=== PATIENT | female | born 1950 | race Caucasian/White ===

== ENCOUNTER 2016-11-30 08:49 | Emergency (ER) | payer OTHER ==
[~2016-11-30] VITALS: Ht 175.3 cm; Wt 61.2 kg
[~2016-11-30 08:49] MED LIST: CELE200C PO; GABA-586 PO; GABAPENTIN PO; LISI-338 PO; MORP15TA PO; MULT1TAB52 PO; OXYC-328 PO; OXYC10TA PO; OXYC30TA PO; PREG75CA PO; TRAM50TA PO
[2016-11-30 09:32] LABS: BASO % 1 % (0-3); EOS # 0.1 x10^3/uL (0.0-0.7); EOS % 1 % (0-3); HEMATOCRIT 44.6 % (36.0-47.0); HEMOGLOBIN 15.3 g/dL (12.0-15.5); LYMPH # 0.9 x10^3/uL (1.0-4.8); LYMPH % 14 % (24-48); MEAN CORPUSCULAR HEMOGLOBIN 31 pg (25-35); MEAN CORPUSCULAR HGB CONC 34 g/dL (31-37); MEAN CORPUSCULAR VOLUME 90 fL (79-100); MONO # 0.7 x10^3/uL (0.0-1.1); MONO % 11 % (0-9); NEUT # 4.9 x10^3uL (1.8-7.7); NEUT % 74 % (31-73); PLATELET COUNT 350 x10^3/uL (140-400); RED BLOOD COUNT 4.95 x10^6/uL (3.50-5.40); RED CELL DISTRIBUTION WIDTH 12.9 % (11.5-14.5); WHITE BLOOD COUNT 6.7 x10^3/uL (4.0-11.0)
[2016-11-30 09:41] LABS: ALBUMIN 3.2 g/dL (3.4-5.0); ALBUMIN/GLOBULIN RATIO 0.7 (1.0-1.7); CALCIUM 9.4 mg/dL (8.5-10.1); CREATININE 0.8 mg/dL (0.6-1.0); GFR 71.3; POTASSIUM 3.6 mmol/L (3.5-5.1); TOTAL BILIRUBIN 0.3 mg/dL (0.2-1.0); TOTAL PROTEIN 7.6 g/dL (6.4-8.2)
[2016-11-30] MEDS ORDERED: IOHEXOL 300 MG/ML 75 ML VIAL. IV ONE (09:45)
--- NOTE | 2016-11-30 10:22 | RAD ---
CT of the abdomen and pelvis with contrast, 11/30/2016: History: Nodule, vomiting, bowel obstruction Multidetector CT imaging was performed following oral and IV administration of contrast. Comparison is made to a study from 12/10/2015. There is mild linear scarring in the lung bases. Extensive capsular calcifications related to bilateral breast implants are noted. There is a small unchanged cyst in the upper portion of the liver. No bile duct dilatation is evident. No dense gallstones are seen. There is no evidence of a pancreatic mass. The spleen is of normal size. There is mild renal cortical scarring. Tiny nonobstructing intrarenal calculi seen on the previous study are obscured on today's exam due to contrast in the collecting system. There is no evidence of renal obstruction. A probable small 9 mm left renal artery aneurysm is again noted, unchanged since 12/10/2015. The adrenal glands are unremarkable. Mild aortoiliac calcific plaquing is present without evidence of aneurysm. No abdominal or pelvic adenopathy is seen. The uterus is surgically absent. There has been previous surgical resection of the colon with an ileostomy in the right lower quadrant. The distal small bowel loops near the ileostomy site are mildly distended measuring approximately 4 cm in width. The right containing a small amount of fecal type debris. There is mild mural thickening involving several small bowel loops in the lower pelvis. Lack of distention of those bowel loops may be contributing to this appearance. The stomach and proximal small bowel loops are not dilated. No high-grade obstruction is evident. There is unchanged mild presacral soft tissue thickening compatible with scarring. No free fluid or free air is evident in the abdomen or pelvis. There is a moderate lumbar scoliosis with moderate associated multilevel degenerative changes. An internal fixation device is present at the left hip. IMPRESSION: 1. Status post colectomy with a right lower quadrant ileostomy in place.. 2. There is mild prominence of distal small bowel loops at the ileostomy site without evidence of high-grade obstruction. 3. Mild mural thickening involving several small bowel loops in the lower pelvis raising the possibility of nonspecific enteritis. 4. Stable small left renal artery aneurysm. PQRS Compliance Statement: One or more of the following individualized dose reduction techniques were utilized for this examination: 1. Automated exposure control 2. Adjustment of the mA and/or kV according to patient size 3. Use of iterative reconstruction technique
[2016-11-30] MEDS ORDERED: ONDANSETRON PF 4 MG/2 ML VIAL. IV ONE (10:45)
[2016-11-30] MEDS ORDERED: MORPHINE SULFATE 4 MG/ML DISP.SYRIN. IM ONE (10:45)
[2016-11-30] MEDS ORDERED: IV NORMAL SALINE 1,000ML 1,000 ML IV ONE (10:45)
--- NOTE | 2016-11-30 11:04 | PHYS DOC ---
Past History Past Medical History: Other Past Surgical History: Hysterectomy, Other Alcohol Use: None Drug Use: None Adult General Chief Complaint Chief Complaint: ABDOMINAL PAIN HPI HPI This 66-year-old lady presents with abdominal pain. She has an ileostomy which has been in place for 35 years after having a colectomy for ulcerative colitis. She states that over the weekend she thinks she may have developed a partial blockage as she had vomiting. She continues to have a little bit of nausea and that she is passing feces through her stoma yesterday and today. She has had abdominal pain and she states that she has been taking food but she has been drinking she isn't keeping water down as well as chocolate milk and she states things just haven't tasted good. She ate a bite of eggs just today and a little watermelon but hasn't been eating much. She has been nauseated but has not been vomiting today. She denies dysuria or fevers. He states he has little bit of pain around her stoma and just inferior to her stoma. Review of Systems Review of Systems Constitutional: Denies fever or chills [] Eyes: Denies change in visual acuity, redness, or eye pain [] HENT: Denies nasal congestion or sore throat [] Respiratory: Denies cough or shortness of breath [] Cardiovascular: No additional information not addressed in HPI [] GI: See history of present illness : Denies dysuria or hematuria [] Musculoskeletal: Denies back pain or joint pain [] Integument: Denies rash or skin lesions [] Neurologic: Denies headache, focal weakness or sensory changes [] Endocrine: Denies polyuria or polydipsia [] Current Medications Current Medications Current Medications Medications (Trade) Dose Ordered Sig/Molly Start Time Stop Time Status Last Admin Dose Admin Iohexol (Omnipaque 300 Mg/ml) 75 ml 1X ONCE 11/30/16 09:45 11/30/16 09:47 DC 11/30/16 10:02 75 ML Morphine Sulfate (Morphine 4mg Syringe) 4 mg 1X ONCE 11/30/16 10:45 11/30/16 10:46 DC Ondansetron HCl (Zofran) 4 mg 1X ONCE 11/30/16 10:45 11/30/16 10:46 DC 11/30/16 10:43 4 MG Sodium Chloride 1,000 ml @ 1,000 mls/hr 1X ONCE 11/30/16 10:45 11/30/16 11:44 11/30/16 10:43 1,000 MLS/HR Allergies Allergies Allergies Coded Allergies Type Severity Reaction Last Updated Verified No Known Drug Allergies 01/27/15 No Physical Exam Physical Exam Constitutional: Well developed, well nourished, no acute distress, non-toxic appearance. [] HENT: Normocephalic, atraumatic, bilateral external ears normal, oropharynx moist, no oral exudates, nose normal. [] Eyes: PERRLA, EOMI, conjunctiva normal, no discharge. [] Neck: Normal range of motion, no tenderness, supple, no stridor. [] Cardiovascular:Heart rate regular rhythm, no murmur [] Lungs & Thorax: Bilateral breath sounds clear to auscultation [] Abdomen: Bowel sounds normal, soft, no tenderness, no masses, no pulsatile masses. [] Skin: Warm, dry, no erythema, no rash. [] Back: No tenderness, no CVA tenderness. [] Extremities: No tenderness, no cyanosis, no clubbing, ROM intact, no edema. [] Neurologic: Alert and oriented X 3, normal motor function, normal sensory function, no focal deficits noted. [] Psychologic: Affect normal, judgement normal, mood normal. [] Current Patient Data Vital Signs Vital Signs Date Time Temp Pulse Resp B/P (MAP) Pulse Ox O2 Delivery O2 Flow Rate FiO2 11/30/16 10:31 98 20 123/75 (91) 98 Room Air 11/30/16 09:07 97.2 Lab Results Laboratory Tests Test 11/30/16 08:15 White Blood Count 6.7 x10^3/uL (4.0-11.0) Red Blood Count 4.95 x10^6/uL (3.50-5.40) Hemoglobin 15.3 g/dL (12.0-15.5) Hematocrit 44.6 % (36.0-47.0) Mean Corpuscular Volume 90 fL (79-100) Mean Corpuscular Hemoglobin 31 pg (25-35) Mean Corpuscular Hemoglobin Concent 34 g/dL (31-37) Red Cell Distribution Width 12.9 % (11.5-14.5) Platelet Count 350 x10^3/uL (140-400) Neutrophils (%) (Auto) 74 % (31-73) H Lymphocytes (%) (Auto) 14 % (24-48) L Monocytes (%) (Auto) 11 % (0-9) H Eosinophils (%) (Auto) 1 % (0-3) Basophils (%) (Auto) 1 % (0-3) Neutrophils # (Auto) 4.9 x10^3uL (1.8-7.7) Lymphocytes # (Auto) 0.9 x10^3/uL (1.0-4.8) L Monocytes # (Auto) 0.7 x10^3/uL (0.0-1.1) Eosinophils # (Auto) 0.1 x10^3/uL (0.0-0.7) Basophils # (Auto) 0.0 x10^3/uL (0.0-0.2) Sodium Level 134 mmol/L (136-145) L Potassium Level 3.6 mmol/L (3.5-5.1) Chloride Level 96 mmol/L (98-107) L Carbon Dioxide Level 25 mmol/L (21-32) Anion Gap 13 (6-14) Blood Urea Nitrogen 13 mg/dL (7-20) Creatinine 0.8 mg/dL (0.6-1.0) Estimated GFR (Cockcroft-Gault) 71.3 BUN/Creatinine Ratio 16 (6-20) Glucose Level 130 mg/dL (70-99) H Calcium Level 9.4 mg/dL (8.5-10.1) Total Bilirubin 0.3 mg/dL (0.2-1.0) Aspartate Amino Transferase (AST) 16 U/L (15-37) Alanine Aminotransferase (ALT) 18 U/L (14-59) Alkaline Phosphatase 147 U/L (46-116) H Total Protein 7.6 g/dL (6.4-8.2) Albumin 3.2 g/dL (3.4-5.0) L Albumin/Globulin Ratio 0.7 (1.0-1.7) L Lipase 101 U/L (73-393) EKG EKG [] Radiology/Procedures Radiology/Procedures [] Impressions: Abdominal Pain UTI Course & Med Decision Making Course & Med Decision Making Pertinent Labs and Imaging studies reviewed. (See chart for details) This lady presents with abdominal pain some slight nausea vomiting diarrhea has been going on for the past several days. She has a history of a ileostomy for ulcerative colitis She feels it is getting better but she still just doesn't feel like eating and she has had some continued nausea Her examination reveals some very mild abdominal tenderness around the ileostomy CT scan of her abdomen is nonspecific There is no obstruction but there may be some changes of a enteritis Her CBC reveals no elevation of white count A catheterized urine reveals a specific gravity of 1.005 (so it's very dilute) with 1-4 white blood cells which may be significant for a mild UTI She will be treated for a urinary tract infection with Cipro and she'll be given Zofran for nausea and hydrocodone/APAP for pain [] Dragon Disclaimer Dragon Disclaimer This chart was dictated in whole or in part using Voice Recognition software in a busy, high-work load, and often noisy Emergency Department environment. It may contain unintended and wholly unrecognized errors or omissions. Departure Departure: Referrals: GERALD VARGAS (PCP) MAYI BUTCHER MD November 30, 2016 11:04
[2016-11-30 11:43] LABS: BILIRUBIN,URINE SMALL (NEG); CLARITY,URINE CLEAR; COLOR,URINE YELLOW; GLUCOSE,URINE NEG (NEG)
[2016-11-30 11:44] LABS: BACTERIA,URINE FEW /HPF (0-FEW); HYALINE CASTS, URINE FEW /HPF; NITRITE,URINE NEG (NEG); RBC,URINE OCC /HPF (0-2); SQUAMOUS EPITHELIAL CELL,UR FEW /LPF; UROBILINOGEN,URINE 0.2 mg/dL (0.2 mg/dL)
[2016-11-30] MEDS ORDERED: HYDR-2758 PO (12:08)
[2016-11-30] MEDS ORDERED: CIPR500T94 PO (12:08)
[2016-11-30] MEDS ORDERED: ONDA4TAB7 PO (12:08)
[2016-11-30 12:20] VITALS: BP 136/69
== END 2016-11-30 12:12 | disposition home or self-care (01) ==
LOC: ER 08:49
DX: N39.0 Urinary tract infection, site not specified (principal); R19.7 Diarrhea, unspecified; Z90.710 Acquired absence of both cervix and uterus; Z90.49 Acquired absence of other specified parts of digestive tract; Z87.19 Personal history of other diseases of the digestive system
CPT/HCPCS: 36415; 74177; 80053; 81001; 83690; 85027; 96361; 96372; 96374; 99285; J2270; J2405; Q9967; J7030

== ENCOUNTER → 2016-12-14 | Outpatient (CLI) | payer OTHER ==
[2016-11-30 12:20] VITALS: BP 136/69
[~2016-12-14] MED LIST changes: +CIPR500T94 PO; +HYDR-2758 PO; +ONDA4TAB7 PO
--- NOTE | 2016-12-14 11:16 | RAD ---
Indication osteoporosis. History of fracture. The lumbar spine and right hip were evaluated. Note is made of a previous bone density determination of the lumbar spine 06/04/2014 and a previous determination of the right hip 07/01/2015. In the lumbar spine the average bone mineral density is approximately 1.18 g/cc. This value may be slightly artificially elevated secondary to sclerotic changes. The T score of 0 is normal. In the right hip the average bone mineral density is approximately 0.67 g/cc representing slight improvement relative to the previous exam. The T score, however, of -2.8 is indicative of persistent osteoporosis. IMPRESSION: Persistent osteoporosis associated with the right hip. Probable normal bone mineral density associated with the lumbar spine
== END | disposition home or self-care (01) ==
LOC: DXRAD 09:54
PROVIDERS: ATTEND Physician Assistant Medical
DX: M81.0 Age-related osteoporosis without current pathological fracture (principal)
CPT/HCPCS: 77080

== ENCOUNTER 2017-05-15 01:04 | Emergency (ER) | payer OTHER ==
[~2017-05-15] VITALS: Ht 175.3 cm; Wt 63.8 kg
[2017-05-15 02:07] LABS: INFLUENZA A PATIENT NEGATIVE (NEGATIVE); INFLUENZA B PATIENT NEGATIVE (NEGATIVE)
[2017-05-15] MEDS ORDERED: BUDESONIDE 0.5 MG/2 ML NEBU NEB ONE (02:30)
[2017-05-15] MEDS ORDERED: AMOXICILLIN 250 MG CAPSULE PO ONE (02:30)
[2017-05-15] MEDS ORDERED: BUDESONIDE 0.5 MG/2 ML NEBU ONE (02:37)
[2017-05-15] MEDS ORDERED: AMOXICILLIN 250 MG CAPSULE ONE (02:38)
[2017-05-15] MEDS ORDERED: AMOX500T PO (02:42)
[2017-05-15] MEDS ORDERED: FLUT12AE IH (02:42)
[2017-05-15] MEDS ORDERED: FLUT9.9S NS (02:42)
--- NOTE | 2017-05-15 02:46 | PHYS DOC ---
Past History Past Medical History: No Pertinent History Past Surgical History: Hysterectomy, Other Alcohol Use: None Drug Use: None Adult General Chief Complaint Chief Complaint: SORE THROAT HPI HPI Patient is a 66 year old F who presents with sore throat and nasal congestion. Hannah states that she began having symptoms 3-4 days ago. She describes her symptoms as constant and gradually worsening. She denies fever sweats chills. She denies shortness of breath. She denies exacerbating or alleviating factors. Review of Systems Review of Systems Constitutional: Denies fever or chills [] Eyes: Denies change in visual acuity, redness, or eye pain [] HENT: Negative except history of present illness Respiratory: Denies cough or shortness of breath [] Cardiovascular: No additional information not addressed in HPI [] GI: Denies abdominal pain, nausea, vomiting, bloody stools or diarrhea [] : Denies dysuria or hematuria [] Musculoskeletal: Denies back pain or joint pain [] Integument: Denies rash or skin lesions [] Neurologic: Denies headache, focal weakness or sensory changes [] Endocrine: Denies polyuria or polydipsia [] Family History Family History Noncontributory Current Medications Current Medications Medications reviewed Allergies Allergies Allergies Coded Allergies Type Severity Reaction Last Updated Verified No Known Drug Allergies 01/27/15 No Physical Exam Physical Exam Constitutional: Well developed, well nourished, no acute distress, non-toxic appearance. [] HENT: Normocephalic, atraumatic, bilateral nasal erythema and edema, normal TM, moderate oropharyngeal erythema with tonsillar edema and white patches on the soft palate Eyes: PERRLA, EOMI, conjunctiva normal, no discharge. [] Neck: Normal range of motion, no tenderness, supple, no stridor. [] Anterior lymphadenopathy Cardiovascular:Heart rate regular rhythm, no murmur [] Lungs & Thorax: Bilateral breath sounds clear to auscultation [] Abdomen: Bowel sounds normal, soft, no tenderness, no masses, no pulsatile masses. [] Skin: Warm, dry, no erythema, no rash. [] Back: No tenderness, no CVA tenderness. [] Extremities: No tenderness, no cyanosis, no clubbing, ROM intact, no edema. [] Neurologic: Alert and oriented X 3, normal motor function, normal sensory function, no focal deficits noted. [] Psychologic: Affect normal, judgement normal, mood normal. [] Current Patient Data Vital Signs Vital Signs Date Time Temp Pulse Resp B/P (MAP) Pulse Ox O2 Delivery O2 Flow Rate FiO2 05/15/17 01:22 98.1 88 20 98 Lab Results Laboratory Tests Test 05/15/17 01:13 05/15/17 01:33 Group A Streptococcus Rapid Negative (NEGATIVE) Influenza Type A (Rapid) Negative (NEGATIVE) Influenza Type B (Rapid) Negative (NEGATIVE) EKG EKG [] Radiology/Procedures Radiology/Procedures [] Course & Med Decision Making Course & Med Decision Making Pertinent Labs and Imaging studies reviewed. (See chart for details) Despite negative strep screening Hannah had symptoms consistent with strep throat. She was given a dose of amoxicillin in the emergency room Dragon Disclaimer Dragon Disclaimer This chart was dictated in whole or in part using Voice Recognition software in a busy, high-work load, and often noisy Emergency Department environment. It may contain unintended and wholly unrecognized errors or omissions. Departure Departure: Impression: Primary Impression: Upper respiratory infection Additional Impressions: Bronchitis Strep throat Disposition: 01 HOME, SELF-CARE Condition: STABLE Referrals: GERALD VARGAS (PCP) Patient Instructions: Acute Bronchitis, Upper Respiratory Infection, Adult Additional Instructions: Hannah was seen in the emergency department for sore throat and nasal congestion. No emergency medical condition was found on history or physical exam. Her symptoms were concerning for strep throat for which she was started on an antibiotic. She was also found to have signs and symptoms consistent with upper respiratory infection and bronchitis. She was advised to use nasal saline rinses regularly and was given an inhaled and nasal steroid sprays. She is advised follow-up with her primary care doctor in the next 3-5 days for further management. Scripts Amoxicillin (AMOXICILLIN) 500 Mg Tablet 2 TAB PO BID for 7 Days, #28 TAB Prov: GEORGIA POP MD 05/15/17 Fluticasone Propionate (FLOVENT 110MCG HFA) 12 Gm Aer.w.adap 2 PUFF IH BID for 7 Days, #1 INHALER 2 Refills Prov: GEORGIA POP MD 05/15/17 Fluticasone Propionate (Flonase Allergy Relief) 9.9 Ml [place].susp 1 SPRAYS NS BID for 7 Days, BOTTLE Prov: GEORGIA POP MD 05/15/17 Problem Qualifiers Primary Impression: Upper respiratory infection URI type: unspecified URI Qualified Codes: J06.9 - Acute upper respiratory infection, unspecified GEORGIA POP MD May 15, 2017 02:46
[2017-05-15 03:05] VITALS: BP 146/88
== END 2017-05-15 03:05 | disposition home or self-care (01) ==
LOC: ER 01:04
DX: J06.9 Acute upper respiratory infection, unspecified (principal); J40 Bronchitis, not specified as acute or chronic; J02.0 Streptococcal pharyngitis
CPT/HCPCS: 87070; 87804; 87880; 94640; 99284; J7626

== ENCOUNTER 2019-03-13 12:58 | Emergency (ER) | payer OTHER ==
[~2019-03-13] VITALS: Ht 175.3 cm; Wt 69.4 kg
[~2019-03-13 12:58] MED LIST changes: +AMOX500T PO; +FLUT12AE IH; +FLUT9.9S NS; +HYDR-2155 PO; -HYDR-2758 PO; -OXYC-328 PO; +OXYC1TAB22 PO
[2019-03-13 13:39] LABS: BASO # 0.1 x10^3/uL (0.0-0.2); BASO % 1 % (0-3); EOS # 0.1 x10^3/uL (0.0-0.7); EOS % 1 % (0-3); HEMATOCRIT 43.4 % (36.0-47.0); HEMOGLOBIN 14.6 g/dL (12.0-15.5); LYMPH # 1.6 x10^3/uL (1.0-4.8); LYMPH % 17 % (24-48); MEAN CORPUSCULAR HEMOGLOBIN 32 pg (25-35); MEAN CORPUSCULAR HGB CONC 34 g/dL (31-37); MEAN CORPUSCULAR VOLUME 96 fL (79-100); MONO # 0.9 x10^3/uL (0.0-1.1); MONO % 9 % (0-9); NEUT # 6.7 x10^3uL (1.8-7.7); NEUT % 72 % (31-73); PLATELET COUNT 376 x10^3/uL (140-400); RED BLOOD COUNT 4.51 x10^6/uL (3.50-5.40); RED CELL DISTRIBUTION WIDTH 14.3 % (11.5-14.5); WHITE BLOOD COUNT 9.3 x10^3/uL (4.0-11.0)
[2019-03-13] MEDS ORDERED: oxyCODONE/APAP 10/325 1 TAB TABLET PO ONE (13:45)
[2019-03-13 13:49] LABS: ALBUMIN 3.8 g/dL (3.4-5.0); ALBUMIN/GLOBULIN RATIO 0.9 (1.0-1.7); CREATININE 1.2 mg/dL (0.6-1.0); GFR 44.4; POTASSIUM 3.8 mmol/L (3.5-5.1); TOTAL BILIRUBIN 0.3 mg/dL (0.2-1.0); TOTAL PROTEIN 7.9 g/dL (6.4-8.2)
[2019-03-13 13:52] LABS: BILIRUBIN,URINE NEG (NEG); CLARITY,URINE HAZY; COLOR,URINE YELLOW; GLUCOSE,URINE NEG (NEG)
[2019-03-13 13:53] LABS: BACTERIA,URINE MANY /HPF (0-FEW); NITRITE,URINE NEG (NEG); RBC,URINE 0 /HPF (0-2); SQUAMOUS EPITHELIAL CELL,UR OCC /LPF; UROBILINOGEN,URINE 0.2 mg/dL (0.2 mg/dL); WBC,URINE >40 /HPF (0-4)
[2019-03-13 14:09] VITALS: BP 153/98
--- NOTE | 2019-03-13 14:17 | ED.ADGEN ---
Past History Past Medical History: No Pertinent History Past Surgical History: Hysterectomy, Other Alcohol Use: None Drug Use: None Adult General Chief Complaint Chief Complaint Patient is a 68-year-old female presents with persistent chronic low back pain, generalized malaise and fatigue. No fever chills nausea vomiting or sweats. Denies chest pain shortness breath cough. No abdominal pain, he no urinary frequency urgency. Patient underwent steroid injection of lumbar spine one week ago. No extremity weakness or loss of sensation. No urinary incontinence. Yet HPI HPI [] Review of Systems Review of Systems Review symptoms as per history of present illness. All other review symptoms are negative. All other systems were reviewed and found to be within normal limits, except as documented in this note. Current Medications Current Medications Current Medications Medications (Trade) Dose Ordered Sig/Molly Start Time Stop Time Status Last Admin Dose Admin Oxycodone/ Acetaminophen (Percocet 10/325) 1 tab 1X ONCE 03/13/19 13:45 03/13/19 13:46 DC 03/13/19 13:42 1 TAB Allergies Allergies Allergies Coded Allergies Type Severity Reaction Last Updated Verified No Known Drug Allergies 01/27/15 No Physical Exam Physical Exam Constitutional: Well developed, well nourished, no acute distress, non-toxic appearance. [] HENT: Normocephalic, atraumatic, bilateral external ears normal, oropharynx moist, no oral exudates, nose normal. [] Eyes: PERRLA, EOMI, conjunctiva normal, no discharge. [] Neck: Normal range of motion, no tenderness, supple, no stridor. [] Cardiovascular:Heart rate regular rhythm, no murmur [] Lungs & Thorax: Bilateral breath sounds clear to auscultation [] Abdomen: Bowel sounds normal, soft, no tenderness, no masses, no pulsatile masses. [] Skin: Warm, dry, no erythema, no rash. [] Back: No tenderness, no CVA tenderness. [] Extremities: No tenderness, no cyanosis, no clubbing, ROM intact, no edema. [] Neurologic: Alert and oriented X 3, normal motor function, normal sensory function, no focal deficits noted. [] Psychologic: Affect normal, judgement normal, mood normal. [] Current Patient Data Vital Signs Vital Signs Date Time Temp Pulse Resp B/P (MAP) Pulse Ox O2 Delivery O2 Flow Rate FiO2 03/13/19 14:09 98 18 153/98 (116) 98 Room Air 03/13/19 13:15 98.3 Lab Results Laboratory Tests Test 03/13/19 13:20 White Blood Count 9.3 x10^3/uL (4.0-11.0) Red Blood Count 4.51 x10^6/uL (3.50-5.40) Hemoglobin 14.6 g/dL (12.0-15.5) Hematocrit 43.4 % (36.0-47.0) Mean Corpuscular Volume 96 fL (79-100) Mean Corpuscular Hemoglobin 32 pg (25-35) Mean Corpuscular Hemoglobin Concent 34 g/dL (31-37) Red Cell Distribution Width 14.3 % (11.5-14.5) Platelet Count 376 x10^3/uL (140-400) Neutrophils (%) (Auto) 72 % (31-73) Lymphocytes (%) (Auto) 17 % (24-48) L Monocytes (%) (Auto) 9 % (0-9) Eosinophils (%) (Auto) 1 % (0-3) Basophils (%) (Auto) 1 % (0-3) Neutrophils # (Auto) 6.7 x10^3uL (1.8-7.7) Lymphocytes # (Auto) 1.6 x10^3/uL (1.0-4.8) Monocytes # (Auto) 0.9 x10^3/uL (0.0-1.1) Eosinophils # (Auto) 0.1 x10^3/uL (0.0-0.7) Basophils # (Auto) 0.1 x10^3/uL (0.0-0.2) Urine Collection Type Unknown Urine Color Yellow Urine Clarity Hazy Urine pH 6.0 Urine Specific [place] 1.015 Urine Protein Neg (NEG-TRACE) Urine Glucose (UA) Neg mg/dL (NEG) Urine Ketones (Stick) Neg mg/dL (NEG) Urine Blood Trace (NEG) Urine Nitrite Neg (NEG) Urine Bilirubin Neg (NEG) Urine Urobilinogen Dipstick 0.2 mg/dL (0.2 mg/dL) Urine Leukocyte Esterase Small (NEG) Urine RBC 0 /HPF (0-2) Urine WBC >40 /HPF (0-4) Urine Squamous Epithelial Cells Occ /LPF Urine Transitional Epithelial Cells Occ /LPF Urine Bacteria Many /HPF (0-FEW) Urine Mucus Slight /LPF Sodium Level 138 mmol/L (136-145) Potassium Level 3.8 mmol/L (3.5-5.1) Chloride Level 101 mmol/L (98-107) Carbon Dioxide Level 25 mmol/L (21-32) Anion Gap 12 (6-14) Blood Urea Nitrogen 26 mg/dL (7-20) H Creatinine 1.2 mg/dL (0.6-1.0) H Estimated GFR (Cockcroft-Gault) 44.4 BUN/Creatinine Ratio 22 (6-20) H Glucose Level 93 mg/dL (70-99) Calcium Level 9.0 mg/dL (8.5-10.1) Total Bilirubin 0.3 mg/dL (0.2-1.0) Aspartate Amino Transferase (AST) 25 U/L (15-37) Alanine Aminotransferase (ALT) 35 U/L (14-59) Alkaline Phosphatase 137 U/L (46-116) H Total Protein 7.9 g/dL (6.4-8.2) Albumin 3.8 g/dL (3.4-5.0) Albumin/Globulin Ratio 0.9 (1.0-1.7) L EKG EKG [] Radiology/Procedures Radiology/Procedures [] Course & Med Decision Making Course & Med Decision Making Pertinent Labs and Imaging studies reviewed. (See chart for details) [Symptoms improved with treatment, no CVA tenderness nausea vomiting or fever. Antibiotics given to treatment off lower urinary tract infection. Recommend PCP follow-up, watchful waiting and supportive care. Return precautions reviewed.] Final Impression Final Impression [1. Generalized malaise 2. Urinary tract infection] Dragon Disclaimer Dragon Disclaimer This electronic medical record was generated, in whole or in part, using a voice recognition dictation system. GERDA PETERSON DO Mar 13, 2019 14:17
[2019-03-13] MEDS ORDERED: CEPH-264 PO (14:42)
== END 2019-03-13 14:53 | disposition home or self-care (01) ==
LOC: ER 12:58
DX: N39.0 Urinary tract infection, site not specified (principal); G89.29 Other chronic pain; R53.81 Other malaise; Z90.710 Acquired absence of both cervix and uterus
CPT/HCPCS: 36415; 80053; 81001; 85025; 87086; 99284

== ENCOUNTER 2019-06-15 15:11 | Emergency (ER) | payer OTHER ==
[~2019-06-15] VITALS: Ht 175.3 cm; Wt 65.0 kg
[~2019-06-15 15:11] MED LIST changes: +CEPH-264 PO
[2019-06-15] MEDS ORDERED: ONDANSETRON PF 4 MG/2 ML VIAL. ONE (15:35)
[2019-06-15] MEDS: IV NORMAL SALINE 1,000ML 1,000 ML IV ONE (15:45)
[2019-06-15] MEDS: ONDANSETRON PF 4 MG/2 ML VIAL. IV ONE (15:45)
[2019-06-15 15:48] LABS: BASO % 1 % (0-3); EOS % 1 % (0-3); HEMATOCRIT 44.6 % (36.0-47.0); HEMOGLOBIN 14.8 g/dL (12.0-15.5); LYMPH % 33 % (24-48); MEAN CORPUSCULAR HEMOGLOBIN 32 pg (25-35); MEAN CORPUSCULAR HGB CONC 33 g/dL (31-37); MEAN CORPUSCULAR VOLUME 95 fL (79-100); MONO # 0.5 x10^3/uL (0.0-1.1); MONO % 9 % (0-9); NEUT # 3.5 x10^3uL (1.8-7.7); NEUT % 57 % (31-73); PLATELET COUNT 300 x10^3/uL (140-400); RED BLOOD COUNT 4.69 x10^6/uL (3.50-5.40); RED CELL DISTRIBUTION WIDTH 12.5 % (11.5-14.5); WHITE BLOOD COUNT 6.1 x10^3/uL (4.0-11.0)
--- NOTE | 2019-06-15 15:56 | PHYS DOC ---
Past History Past Medical History: No Pertinent History Past Surgical History: Hysterectomy, Other Alcohol Use: None Drug Use: None Adult General Chief Complaint Chief Complaint: ABDOMINAL PAIN HPI HPI Patient is a 68-year-old female presenting with right lower quadrant pain sudden onset feels like something is ripping and tearing inside radiates to the left side episode of emesis in the emergency room no problems urinating she does have an ileostomy that is 40 years old she did have no fever Review of Systems Review of Systems Constitutional: Denies fever or chills [] Eyes: Denies change in visual acuity, redness, or eye pain [] HENT: Denies nasal congestion or sore throat [] Musculoskeletal: All other systems were reviewed and found to be within normal limits, except as documented in this note. Current Medications Current Medications Current Medications Medications (Trade) Dose Ordered Sig/Molly Start Time Stop Time Status Last Admin Dose Admin Fentanyl Citrate (Fentanyl 2ml Vial) 50 mcg 1X ONCE 06/15/19 15:45 06/15/19 15:46 DC Ondansetron HCl (Zofran) 4 mg STK-MED ONCE 06/15/19 15:35 06/15/19 15:35 DC Sodium Chloride 1,000 ml @ 1,000 mls/hr 1X ONCE 06/15/19 15:45 06/15/19 16:44 Allergies Allergies Allergies Coded Allergies Type Severity Reaction Last Updated Verified No Known Drug Allergies 01/27/15 No Physical Exam Physical Exam Constitutional: Well developed, well nourished, no acute distress, non-toxic appearance. [] HENT: Normocephalic, atraumatic, bilateral external ears normal, oropharynx moist, no oral exudates, nose normal. [] Eyes: PERRLA, EOMI, conjunctiva normal, no discharge. [] Neck: Normal range of motion, no tenderness, supple, no stridor. [] Cardiovascular:Heart rate regular rhythm, no murmur [] Lungs & Thorax: Bilateral breath sounds clear to auscultation [] Abdomen: Bowel sounds normal, soft, mild right lower quadrant tenderness, no masses, no pulsatile masses. [] Ileostomy is in place draining brown stool Skin: Warm, dry, no erythema, no rash. [] Back: No tenderness, no CVA tenderness. [] Extremities: No tenderness, no cyanosis, no clubbing, ROM intact, no edema. [] Neurologic: Alert and oriented X 3, normal motor function, normal sensory functi on, no focal deficits noted. [] Psychologic: Affect normal, judgement normal, mood normal. [] Current Patient Data Vital Signs Vital Signs Date Time Temp Pulse Resp B/P (MAP) Pulse Ox O2 Delivery O2 Flow Rate FiO2 06/15/19 15:26 97.9 76 16 100 Room Air Lab Results Laboratory Tests Test 06/15/19 15:33 White Blood Count 6.1 x10^3/uL (4.0-11.0) Red Blood Count 4.69 x10^6/uL (3.50-5.40) Hemoglobin 14.8 g/dL (12.0-15.5) Hematocrit 44.6 % (36.0-47.0) Mean Corpuscular Volume 95 fL (79-100) Mean Corpuscular Hemoglobin 32 pg (25-35) Mean Corpuscular Hemoglobin Concent 33 g/dL (31-37) Red Cell Distribution Width 12.5 % (11.5-14.5) Platelet Count 300 x10^3/uL (140-400) Neutrophils (%) (Auto) 57 % (31-73) Lymphocytes (%) (Auto) 33 % (24-48) Monocytes (%) (Auto) 9 % (0-9) Eosinophils (%) (Auto) 1 % (0-3) Basophils (%) (Auto) 1 % (0-3) Neutrophils # (Auto) 3.5 x10^3uL (1.8-7.7) Lymphocytes # (Auto) 2.0 x10^3/uL (1.0-4.8) Monocytes # (Auto) 0.5 x10^3/uL (0.0-1.1) Eosinophils # (Auto) 0.0 x10^3/uL (0.0-0.7) Basophils # (Auto) 0.0 x10^3/uL (0.0-0.2) EKG EKG [] Radiology/Procedures Radiology/Procedures [] Impressions: IMPRESSION: 1. A 6 mm obstructing calculus at the proximal right ureter with mild left-sided hydronephrosis. There is mild enhancement of the right ureter, may relate to ureteral right is. Correlate with urinalysis. 2. Several nonobstructing renal calculi bilaterally. 3. Right lower quadrant ileostomy. No evidence for obstruction. 4. A 4 mm nodule in the left lower lobe. In a low-risk patient no further follow-up imaging is recommended. In a high-risk patient optional one-year follow-up CT can BE performed. Exposure: One or more of the following in the visualized dose reduction techniques were utilized for this examination: 1. Automated exposure control 2. Adjustment of the MA and/or KV according to patient size 3. Use of iterative of reconstructive technique Electronically signed by: Reinaldo Hatfield MD (06/15/2019 4:47 PM) [facility] Course & Med Decision Making Course & Med Decision Making Pertinent Labs and Imaging studies reviewed. (See chart for details) []hx of ileostomy p/w rlq pain foudn to have 6 mm stone, creatinine good, no fever, no infection, pain much improved in the ER i called pt 06/16, she is doing okay with oxycodone pain meidcation that she takes for chronic pain. 4 mm nodule i told the patient about this. she will contact her primary doctor. Dragon Disclaimer Dragon Disclaimer This electronic medical record was generated, in whole or in part, using a voice recognition dictation system. Departure Departure: Impression: Primary Impression: Nephrolithiasis Disposition: HOME, SELF-CARE Condition: STABLE Referrals: GERALD VARGAS (PCP) Scripts Tamsulosin Hcl (FLOMAX) 0.4 Mg Cap.er.24h 1 CAP PO DAILY for kidney stone., #30 CAP 0 Refills Prov: LUZ RAMSEY MD 06/15/19 Ondansetron (ONDANSETRON ODT) 4 Mg Tab.rapdis 1 TAB PO PRN Q6-8HRS PRN for PAIN, #16 TAB Prov: LUZ RAMESY MD 06/15/19 Hydrocodone Bit/Acetaminophen (NORCO 5-325 TABLET) 1 Each Tablet 1-2 TAB PO Q4-6HRS PRN for PAIN, #15 TAB Prov: LUZ RAMSEY MD 06/15/19 LUZ RAMSEY MD Jun 15, 2019 15:56
[2019-06-15] MEDS: MORPHINE SULFATE 4 MG/ML DISP.SYRIN. IV ONE (16:06)
[2019-06-15 16:11] LABS: ALBUMIN 3.9 g/dL (3.4-5.0); ALBUMIN/GLOBULIN RATIO 1.1 (1.0-1.7); CALCIUM 9.2 mg/dL (8.5-10.1); CREATININE 0.8 mg/dL (0.6-1.0); GFR 70.9; POTASSIUM 3.4 mmol/L (3.5-5.1); TOTAL BILIRUBIN 0.2 mg/dL (0.2-1.0); TOTAL PROTEIN 7.6 g/dL (6.4-8.2)
[2019-06-15] MEDS: IOHEXOL 300 MG/ML 75 ML VIAL. IV ONE (16:30)
--- NOTE | 2019-06-15 16:50 | RAD ---
Exam: CT abdomen and pelvis with contrast INDICATION: Right lower quadrant pain TECHNIQUE: Sequential axial images through the abdomen and pelvis obtained following the administration of 75 mL of Omni 300 IV contrast. Sagittal and coronal reformatted images were reconstructed from the axial data and reviewed. Comparisons: 11/30/2016 FINDINGS: Heart size is normal. No pericardial effusion. There is a 4 mm nodule in the left lower lobe series 2 image 1. Hypoattenuating ill-defined lesion in the right hepatic lobe series 2 image 13 measuring 1.3 cm in diameter which appears stable when compared to study in 2017. Spleen, pancreas, gallbladder and adrenals are unremarkable. No perinephric inflammation. There is mild left-sided hydronephrosis. 6 mm calculus at the right proximal ureter. Several 2 to 3 mm nonobstructing renal calculi are noted bilaterally. Bladder is distended and appears thin-walled. Uterus is absent. No abnormal adnexal mass. Postsurgical changes of colectomy with a right lower quadrant ileostomy. No obstruction. No free intra-abdominal air or fluid. Abdominal aorta has a normal course and caliber. Abdominal vasculature is patent. No enlarged intra-abdominal lymph nodes are identified. No suspicious osseous lesions or acute fractures. IMPRESSION: 1. A 6 mm obstructing calculus at the proximal right ureter with mild left-sided hydronephrosis. There is mild enhancement of the right ureter, may relate to ureteral right is. Correlate with urinalysis. 2. Several nonobstructing renal calculi bilaterally. 3. Right lower quadrant ileostomy. No evidence for obstruction. 4. A 4 mm nodule in the left lower lobe. In a low-risk patient no further follow-up imaging is recommended. In a high-risk patient optional one-year follow-up CT can BE performed. Exposure: One or more of the following in the visualized dose reduction techniques were utilized for this examination: 1. Automated exposure control 2. Adjustment of the MA and/or KV according to patient size 3. Use of iterative of reconstructive technique Electronically signed by: Reinaldo Hatfield MD (06/15/2019 4:47 PM) [facility]
[2019-06-15 16:53] VITALS: BP 160/90
[2019-06-15 17:24] LABS: BILIRUBIN,URINE NEG (NEG); CLARITY,URINE HAZY; COLOR,URINE YELLOW; GLUCOSE,URINE NEG (NEG); NITRITE,URINE NEG (NEG); UROBILINOGEN,URINE 0.2 mg/dL (0.2 mg/dL)
[2019-06-15 17:25] LABS: BACTERIA,URINE 0 /HPF (0-FEW); SQUAMOUS EPITHELIAL CELL,UR OCC /LPF; WBC,URINE OCC /HPF (0-4)
[2019-06-15] MEDS ORDERED: ONDA4TAB12 PO (17:50)
[2019-06-15] MEDS ORDERED: HYDR-3165 PO (17:50)
[2019-06-15] MEDS ORDERED: TAMS0.4C97 PO (17:50)
--- NOTE | 2019-06-18 12:21 | EKG ---
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
== END 2019-06-15 18:05 | disposition home or self-care (01) ==
LOC: ER 15:11
DX: N13.2 Hydronephrosis with renal and ureteral calculous obstruction (principal); Z90.710 Acquired absence of both cervix and uterus; R11.10 Vomiting, unspecified
CPT/HCPCS: 36415; 74177; 80053; 81001; 83605; 83690; 84484; 85025; 87086; 93005; 96361; 96374; 96375; J2270; J2405; J3010; Q9967; 99285-25; J7030

== ENCOUNTER 2019-07-08 22:09 | Inpatient (IN) | payer OTHER ==
[~2019-07-08] VITALS: Ht 172.7 cm; Wt 63.3 kg
[~2019-07-08 22:09] MED LIST changes: +HYDR-3165 PO; +ONDA4TAB12 PO; +TAMS0.4C97 PO
[2019-07-08 23:28] LABS: BACTERIA,URINE 0 /HPF (0-FEW); BILIRUBIN,URINE NEG (NEG); CLARITY,URINE CLEAR; COLOR,URINE YELLOW; GLUCOSE,URINE NEG (NEG); NITRITE,URINE NEG (NEG); RBC,URINE OCC /HPF (0-2); SQUAMOUS EPITHELIAL CELL,UR OCC /LPF; UROBILINOGEN,URINE 0.2 mg/dL (0.2 mg/dL)
[2019-07-08] MEDS ORDERED: MORPHINE SULFATE 10 MG/ML SYRINGE. IM ONE (23:30)
[2019-07-08] MEDS ORDERED: ONDANSETRON ODT 4 MG TAB.RAPDIS PO ONE (23:30)
[2019-07-08] MEDS ORDERED: MORPHINE SULFATE 10 MG/ML SYRINGE. ONE (23:33)
[2019-07-08 23:52] LABS: BASO % 1 % (0-3); EOS # 0.1 x10^3/uL (0.0-0.7); EOS % 3 % (0-3); HEMATOCRIT 43.5 % (36.0-47.0); HEMOGLOBIN 14.6 g/dL (12.0-15.5); LYMPH % 23 % (24-48); MEAN CORPUSCULAR HEMOGLOBIN 31 pg (25-35); MEAN CORPUSCULAR HGB CONC 34 g/dL (31-37); MEAN CORPUSCULAR VOLUME 92 fL (79-100); MONO # 0.4 x10^3/uL (0.0-1.1); MONO % 9 % (0-9); NEUT # 2.7 x10^3uL (1.8-7.7); NEUT % 65 % (31-73); PLATELET COUNT 234 x10^3/uL (140-400); RED BLOOD COUNT 4.73 x10^6/uL (3.50-5.40); RED CELL DISTRIBUTION WIDTH 12.2 % (11.5-14.5); WHITE BLOOD COUNT 4.2 x10^3/uL (4.0-11.0)
[2019-07-09 00:02] LABS: CALCIUM 9.5 mg/dL (8.5-10.1); CREATININE 0.8 mg/dL (0.6-1.0); GFR 70.9; POTASSIUM 3.6 mmol/L (3.5-5.1)
[2019-07-09 00:08] LABS: ALBUMIN 3.6 g/dL (3.4-5.0); ALBUMIN/GLOBULIN RATIO 0.9 (1.0-1.7); TOTAL BILIRUBIN 0.4 mg/dL (0.2-1.0); TOTAL PROTEIN 7.6 g/dL (6.4-8.2)
[2019-07-09] MEDS ORDERED: IV DEXTROSE 5 %-0.45 % NACL 1,000 ML IV SCH (01:00)
[2019-07-09] MEDS ORDERED: IOHEXOL 300 MG/ML 75 ML VIAL. IV ONE (01:30)
[2019-07-09] MEDS ORDERED: CONTRAST GIVEN MC PRN (01:45)
[2019-07-09] MEDS: MORPHINE SULFATE 2 MG/ML DISP.SYRIN. IV PRN ×5 (01:55→14:14)
--- NOTE | 2019-07-09 02:37 | NUR ---
The patient, BENY CUBA, 68 y/o, F admitted by ALONSO BIRCH MD, was given written information regarding hospital policies, unit procedures and contact persons. Admitted with diagnosis Acute Pancreatitis. Patient oriented to room, bed, call light and plan of care. Call light in reach. See admission assessment/documentation. Valuables were checked and .
[2019-07-09 02:49] VITALS: BP 156/82
[2019-07-09] MEDS ORDERED: MORP-15 PO (03:52)
[2019-07-09] MEDS ORDERED: OXYC10TA PO (03:54)
[2019-07-09] MEDS ORDERED: IV DEXTROSE 5 %-0.45 % NACL 1,000 ML IV ONE (04:15)
--- NOTE | 2019-07-09 05:11 | RAD ---
Study: CT abdomen/pelvis with intravenous contrast Indication: Mid abdominal pain/pancreatitis. Comparison: 06/15/2019 Technique: Helical CT imaging performed of the abdomen and pelvis after the intravenous administration of 75 cc Omnipaque 300 contrast. Sagittal and coronal reformats were obtained. One or more of the following individualized dose reduction techniques were utilized for this examination: 1. Automated exposure control 2. Adjustment of the mA and/or kV according to patient size 3. Use of iterative reconstruction technique. Findings: Partially visualized densely mineralized breast implants. Chronic lung changes and minimal volume loss. Unchanged left lower lobe pulmonary nodule measuring approximately 3.5 mm. Unchanged millimetric right lower lobe pulmonary nodule, image 1 series 3. Unchanged low-attenuation focus within the central aspect of the liver. No newly seen liver abnormality. No CT manifestations of cholecystitis. Ill-defined low-attenuation involving a portion of the mid pancreatic body with surrounding fatty reticulation along the posterior margin of the pancreas. The extent of parenchymal low-attenuation is more pronounced at this location from the comparison though the degree of surrounding inflammation is similar. More conspicuous tracking low-attenuation within/along the distal body/tail relative to the prior. No well-circumscribed fluid collection. Unchanged spleen and adrenal glands. Small bilateral intrarenal stones. The previously described 6 mm focus of mineralization along the distal left ureter appears to represent a phlebolith and this is unchanged dating back to the 11/30/2016 comparison. Unchanged left renal artery aneurysm approaching the hilum on image 18 series 3 measured at approximately 1 cm. Mildly dilated urinary bladder. Absent uterus. No adnexal mass. Redemonstrated right lower quadrant ostomy. Pelvic surgical changes. Redemonstrated soft tissue fullness within the deep pelvis with tethering of adjacent bowel. No bowel obstruction. Multifocal calcific atherosclerosis. The aorta is tortuous but nonaneurysmal. No newly seen lymphadenopathy. Multifocal osseous degenerative changes and left femur surgical hardware. As before, scattered levels with neural foraminal stenosis most notable on the right at the L2-L3 level. Impression: 1. Again seen is a region of parenchymal low-attenuation involving the mid pancreatic body with surrounding inflammatory changes mainly along the dorsal margin of the pancreas. The extent of fatty reticulation is overall similar to the most recent prior however the parenchymal low-attenuation has progressed and there is more conspicuous tracking low-attenuation into the more distal pancreatic body and tail. Persistent pancreatitis is the leading consideration for this appearance. No peripancreatic fluid collection. A pancreatic mass is considered less likely and there does not appear to be obstruction of the pancreatic duct. Short-term follow-up is recommended to document improvement and exclude an underlying mass. 2. Unchanged ill-defined low-attenuation focus within the mid aspect of the liver which is presumably a benign cyst or hemangioma as this is no different relative to 2017. 3. Several nonobstructing intrarenal stones bilaterally. The previously described calcific focus in the region of the distal left ureter appears to represent a phlebolith and this was present dating back to 2017. 4. Additional chronic findings as detailed above to include advanced spondylosis with varying degrees of neural foraminal stenosis that is severe at a few levels. Electronically signed by: DANILO MADDEN MD (07/09/2019 5:08 AM) [facility]
[2019-07-09 05:52] VITALS: BP 138/83
--- NOTE | 2019-07-09 06:02 | EKG ---
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
--- NOTE | 2019-07-09 06:07 | PHYS DOC ---
Past History Past Medical History: No Pertinent History Past Surgical History: Hysterectomy, Other Additional Past Surgical Histo: ILIOSTOMY Alcohol Use: None Drug Use: None Adult General Chief Complaint Chief Complaint: ABDOMINAL PAIN HPI HPI Patient is a 68-year-old female with history of ulcerative colitis with ileostomy who presents with diffuse mid and lower abdominal pain, cramping. Pain is described sharp moderate to severe and is nonradiating. Pain is worse with palpation eating and movement. No nausea vomiting. No flank pain. No fever chills or sweats. No urinary frequency urgency or burning. Patient was treated in the emergency department approximately 2 weeks ago for kidney stone. [] Review of Systems Review of Systems Review symptoms as per history of present illness. All other review symptoms are negative. All other systems were reviewed and found to be within normal limits, except as documented in this note. Current Medications Current Medications Current Medications Medications (Trade) Dose Ordered Sig/Molly Start Time Stop Time Status Last Admin Dose Admin Morphine Sulfate (Morphine 10mg Syringe) 10 mg STK-MED ONCE 07/08/19 23:33 07/08/19 23:34 DC Ondansetron HCl (Zofran Odt) 4 mg 1X ONCE 07/08/19 23:30 07/08/19 23:34 DC 07/08/19 23:34 4 MG Allergies Allergies Allergies Coded Allergies Type Severity Reaction Last Updated Verified No Known Drug Allergies 01/27/15 No Physical Exam Physical Exam Constitutional: Well developed, well nourished, just, anxious, moderate distress secondary to pain.[] HENT: Normocephalic, atraumatic, bilateral external ears normal, oropharynx moist, no oral exudates, nose normal. [] Eyes: PERRLA, EOMI, conjunctiva normal, no discharge. [] Neck: Normal range of motion, no tenderness, supple, no stridor. [] Cardiovascular:Heart rate regular rhythm, no murmur [] Lungs & Thorax: Bilateral breath sounds clear to auscultation [] Abdomen: Bowel sounds normal, soft, no distention increased bowel sounds, diffuse midabdominal pain, tenderness to palpation.[] Skin: Warm, dry, no erythema, no rash. [] Back: No tenderness. [] Extremities: No tenderness, no cyanosis, no clubbing, ROM intact, no edema. [] Neurologic: Alert and oriented X 3, normal motor function, normal sensory function, no focal deficits noted. [] Psychologic: Affect normal, judgement normal, mood normal. [] Current Patient Data Vital Signs Vital Signs Date Time Temp Pulse Resp B/P (MAP) Pulse Ox O2 Delivery O2 Flow Rate FiO2 07/09/19 05:52 98.0 69 17 138/83 (101) 93 Room Air Lab Results Laboratory Tests Test 07/08/19 22:31 07/08/19 23:26 Urine Collection Type Unknown Urine Color Yellow Urine Clarity Clear Urine pH 7.5 Urine Specific [place] 1.015 Urine Protein Neg (NEG-TRACE) Urine Glucose (UA) Neg mg/dL (NEG) Urine Ketones (Stick) Neg mg/dL (NEG) Urine Blood Trace (NEG) Urine Nitrite Neg (NEG) Urine Bilirubin Neg (NEG) Urine Urobilinogen Dipstick 0.2 mg/dL (0.2 mg/dL) Urine Leukocyte Esterase Mod (NEG) Urine RBC Occ /HPF (0-2) Urine WBC 1-4 /HPF (0-4) Urine Squamous Epithelial Cells Occ /LPF Urine Bacteria 0 /HPF (0-FEW) White Blood Count 4.2 x10^3/uL (4.0-11.0) Red Blood Count 4.73 x10^6/uL (3.50-5.40) Hemoglobin 14.6 g/dL (12.0-15.5) Hematocrit 43.5 % (36.0-47.0) Mean Corpuscular Volume 92 fL (79-100) Mean Corpuscular Hemoglobin 31 pg (25-35) Mean Corpuscular Hemoglobin Concent 34 g/dL (31-37) Red Cell Distribution Width 12.2 % (11.5-14.5) Platelet Count 234 x10^3/uL (140-400) Neutrophils (%) (Auto) 65 % (31-73) Lymphocytes (%) (Auto) 23 % (24-48) L Monocytes (%) (Auto) 9 % (0-9) Eosinophils (%) (Auto) 3 % (0-3) Basophils (%) (Auto) 1 % (0-3) Neutrophils # (Auto) 2.7 x10^3uL (1.8-7.7) Lymphocytes # (Auto) 1.0 x10^3/uL (1.0-4.8) Monocytes # (Auto) 0.4 x10^3/uL (0.0-1.1) Eosinophils # (Auto) 0.1 x10^3/uL (0.0-0.7) Basophils # (Auto) 0.0 x10^3/uL (0.0-0.2) Sodium Level 144 mmol/L (136-145) Potassium Level 3.6 mmol/L (3.5-5.1) Chloride Level 106 mmol/L (98-107) Carbon Dioxide Level 26 mmol/L (21-32) Anion Gap 12 (6-14) Blood Urea Nitrogen 8 mg/dL (7-20) Creatinine 0.8 mg/dL (0.6-1.0) Estimated GFR (Cockcroft-Gault) 70.9 BUN/Creatinine Ratio 10 (6-20) Glucose Level 110 mg/dL (70-99) H Calcium Level 9.5 mg/dL (8.5-10.1) Total Bilirubin 0.4 mg/dL (0.2-1.0) Aspartate Amino Transferase (AST) 25 U/L (15-37) Alanine Aminotransferase (ALT) 24 U/L (14-59) Alkaline Phosphatase 100 U/L (46-116) Troponin I Quantitative < 0.017 ng/mL (0-0.055) Total Protein 7.6 g/dL (6.4-8.2) Albumin 3.6 g/dL (3.4-5.0) Albumin/Globulin Ratio 0.9 (1.0-1.7) L Lipase 1685 U/L (73-393) H EKG EKG [] Radiology/Procedures Radiology/Procedures [CT abdomen pelvis: Pancreatitis, liver lesion, nonobstructive renal stones per radiology report] Course & Med Decision Making Course & Med Decision Making Pertinent Labs and Imaging studies reviewed. (See chart for details) [Pain medications given. Anxiety acute pancreatitis. Will admit to hospital service.] Dragon Disclaimer Dragon Disclaimer This electronic medical record was generated, in whole or in part, using a voice recognition dictation system. Departure Departure: Impression: Primary Impression: Pancreatitis, acute Disposition: ADMITTED INPATIENT Condition: STABLE GERDA PETERSON DO Jul 09, 2019 06:07
[2019-07-09 10:08] VITALS: BP 143/78
[2019-07-09 14:50] VITALS: BP 154/86
[2019-07-09] MEDS: MORPHINE SULFATE 4 MG/ML DISP.SYRIN. IV PRN ×3 (16:26→22:08)
[2019-07-09] MEDS: POTASSIUM CL 20MEQ D5-0.45NACL 1,000 ML IV SCH (16:28)
[2019-07-09 17:09] VITALS: BP 145/79
--- NOTE | 2019-07-09 17:17 | NUR ---
Patient is alert and oriented x4. Has complaints of abdominal pain that was controlled with the 2mg of morphine but is not working as well. Just gave 4mg of morphine per Dr Mccain order, pt states that does helped. Lungs are clear, pt has ileostomy that she cares for herself. Pt is NPO. Pt understands need to be NPO. WCTM.
--- NOTE | 2019-07-09 18:04 | HP ---
ADMIT DATE: 07/09/2019 HISTORY OF PRESENT ILLNESS: The patient is a 68-year-old female patient, who came to the Emergency Room with a complaint of diffuse mid and lower abdominal pain that is crampy in nature of the pain is described as sharp, moderate to severe and is nonradiating. Pain is worse with palpation, eating and movement. No nausea. No vomiting. No flank pain. No fever, chills or sweats. No urinary frequency, urgency or burning. She was treated in this Emergency Room approximately 2 weeks ago for left-sided kidney stone. She was extensively evaluated. She had labs. Her lab work showed that her blood count was within normal range. Her chemistry was unremarkable except for markedly elevated serum lipase of 1685. Her urinalysis was unremarkable. She had a CT scan of the abdomen and pelvis, which basically showed that the patient has a region of parenchymal low attenuation involving the mid pancreatic body with surrounding inflammatory changes, mainly along the dorsal margin of the pancreas. The extensive fatty reticulation is overall similar to the most recent prior; however, the parenchymal low attenuation has progressed and there is more conspicuous tracking low attenuation to the more distal pancreatic body and tail. Persistent pancreatitis is the leading consideration for this appearance. No peripancreatic fluid collection. Pancreatic mass is considered less likely. There does not appear to be obstruction of the pancreatic duct. Short-term followup was recommended to document improvement and exclude any underlying masses. There was unchanged ill-defined low attenuation focus within the mid aspect of the liver, which is presumably benign cyst or hemangioma. This is no different since 2017. She has several nonobstructing intrarenal stones bilaterally. The previously described calcific focus in the region of the distal left ureter appears to represent a phlebolith and this was present dating back in 2017. The patient has also chronic finding including advanced spondylosis regarding increase of neural foraminal stenosis that is severe at few levels. ASSESSMENT AND PLAN: The patient was admitted and started on IV fluid together with IV pain medication, antiemetic and kept n.p.o. I reviewed all her medications, none of them can cause pancreatitis. We will keep her n.p.o., continue with pain management and monitor her lab work on a daily basis and once her symptoms subside and amylase drops, we can start her on clear liquid diet and advance as tolerated. ALONSO BIRCH MD DR: Jeff JOB#: [id number] / [id number]
[2019-07-09] MEDS: ONDANSETRON PF 4 MG/2 ML VIAL. IV PRN ×2 (19:07→23:11)
[2019-07-09] MEDS ORDERED: diphenhydrAMINE 50 MG/ML VIAL IVP PRN (20:15)
[2019-07-09 23:15] VITALS: BP 152/89
[2019-07-10] MEDS: MORPHINE SULFATE 4 MG/ML DISP.SYRIN. IV PRN ×4 (04:34→23:31)
[2019-07-10] MEDS: ONDANSETRON PF 4 MG/2 ML VIAL. IVP PRN ×4 (04:36→20:11)
[2019-07-10 05:38] VITALS: BP 152/88
[2019-07-10] MEDS: POTASSIUM CL 20MEQ D5-0.45NACL 1,000 ML IV SCH ×2 (06:45→20:10)
[2019-07-10 06:59] LABS: HEMOGLOBIN 13.7 g/dL (12.0-15.5); RED BLOOD COUNT 4.46 x10^6/uL (3.50-5.40); RED CELL DISTRIBUTION WIDTH 12.1 % (11.5-14.5); WHITE BLOOD COUNT 3.7 x10^3/uL (4.0-11.0)
[2019-07-10 07:21] LABS: ALBUMIN 3.2 g/dL (3.4-5.0); ALBUMIN/GLOBULIN RATIO 0.8 (1.0-1.7); CALCIUM 8.7 mg/dL (8.5-10.1); CREATININE 0.7 mg/dL (0.6-1.0); GFR 82.7; POTASSIUM 3.9 mmol/L (3.5-5.1); TOTAL BILIRUBIN 0.6 mg/dL (0.2-1.0)
--- NOTE | 2019-07-10 09:09 | HP ---
ADMIT DATE: 07/09/2019 HISTORY OF PRESENT ILLNESS: The patient is a 68-year-old female patient, who came to the Emergency Room with a complaint of diffuse mid and lower abdominal pain that is crampy in nature of the pain is described as sharp, moderate to severe and is nonradiating. Pain is worse with palpation, eating and movement. No nausea. No vomiting. No flank pain. No fever, chills or sweats. No urinary frequency, urgency or burning. She was treated in this Emergency Room approximately 2 weeks ago for left-sided kidney stone. She was extensively evaluated. She had labs. Her lab work showed that her blood count was within normal range. Her chemistry was unremarkable except for markedly elevated serum lipase of 1685. Her urinalysis was unremarkable. She had a CT scan of the abdomen and pelvis, which basically showed that the patient has a region of parenchymal low attenuation involving the mid pancreatic body with surrounding inflammatory changes, mainly along the dorsal margin of the pancreas. The extensive fatty reticulation is overall similar to the most recent prior; however, the parenchymal low attenuation has progressed and there is more conspicuous tracking low attenuation to the more distal pancreatic body and tail. Persistent pancreatitis is the leading consideration for this appearance. No peripancreatic fluid collection. Pancreatic mass is considered less likely. There does not appear to be obstruction of the pancreatic duct. Short-term followup was recommended to document improvement and exclude any underlying masses. There was unchanged ill-defined low attenuation focus within the mid aspect of the liver, which is presumably benign cyst or hemangioma. This is no different since 2017. She has several nonobstructing intrarenal stones bilaterally. The previously described calcific focus in the region of the distal left ureter appears to represent a phlebolith and this was present dating back in 2017. The patient has also chronic finding including advanced spondylosis regarding increase of neural foraminal stenosis that is severe at few levels. ASSESSMENT AND PLAN: The patient was admitted and started on IV fluid together with IV pain medication, antiemetic and kept n.p.o. I reviewed all her medications, none of them can cause pancreatitis. We will keep her n.p.o., continue with pain management and monitor her lab work on a daily basis and once her symptoms subside and amylase drops, we can start her on clear liquid diet and advance as tolerated. ADDENDUM PAST MEDICAL HISTORY: Significant for nephrolithiasis, hyperlipidemia, osteoarthritis, scoliosis, and ulcerative colitis. PAST SURGICAL HISTORY: Significant for total abdominal hysterectomy, bilateral salpingo-oophorectomy, left femur fracture, status post open reduction and internal fixation, left total knee arthroplasty, ileostomy and total colectomy, appendectomy as well as colonoscopy. ALLERGIES: She has no known drug allergies. MEDICATIONS: She is currently on following medications: She is on morphine sulfate extended release 15 mg at bedtime, oxycodone 10 mg 2 tablets 3 times a day, gabapentin 300 mg 3 times a day, multivitamin 1 tablet once a day. FAMILY HISTORY: She has one sister older and was due to second massive myocardial infarction in her 40s. One sister, younger and still healthy and alive. Her father in his 60s because of lung cancer. Mother in her 60s because of emphysema. SOCIAL HISTORY: She is , has no children. She never smoked, does not drink alcohol or use any recreational drugs. REVIEW OF SYSTEMS: As in history of present illness. PHYSICAL EXAMINATION: GENERAL: She looked well and was clearly in no apparent respiratory distress. No pallor, jaundice, cyanosis or thyromegaly. No jugular venous distention. No limb edema. VITAL SIGNS: Her heart rate was 74, blood pressure was 143/78, temperature was 98, and respiratory rate 20, and oxygen saturation was 96%. HEAD, EYES, EARS, NOSE AND THROAT: Normocephalic, atraumatic. NECK: Supple. HEART: Showed normal first and second heart sounds. No gallop or murmur. CHEST: Clear to auscultation. No crepitation or rhonchi. ABDOMEN: Distended, soft, diffusely tender. No guarding or rigidity. No organomegaly. All hernial orifice intact. Bowel sounds normal. NEUROLOGIC: She is awake, alert, responding appropriately. All cranial nerves intact. She moves extremities without difficulty. She ambulates without assistance or assistive devices. LABORATORY DATA: Showed a white cell count 4200, hemoglobin 14.6, hematocrit 44, MCV 92, and platelet count 234,000. Her chemistry showed a serum sodium 144, potassium 3.6, chloride 106, bicarbonate 26, anion gap of 12, BUN 8, creatinine 0.8, estimated GFR was 71 mL per minute. Her glucose 110, calcium was 9.5. Total bilirubin, AST, ALT, alkaline phosphatase were normal. Total protein was 7.6, albumin was 3.6. Lipase was 1685. Urinalysis essentially unremarkable. ASSESSMENT AND PLAN: In summary, this is a 68-year-old female patient, who presented with diffuse abdominal pain that goes through and through to the back, was diagnosed with acute pancreatitis. She currently has had no evidence of acute cholecystitis or cholelithiasis. She is not alcoholic, not on new medication that induced this. Her calcium is normal. My plan is to check her fasting lipid profile tomorrow and arrange for her also to have an abdominal ultrasound and keep her n.p.o., continue with IV fluid and IV pain medication. ALONSO BIRCH MD DR: HARRISON/caren JOB#: [id number] / [id number]
--- NOTE | 2019-07-10 11:23 | RAD ---
ABDOMEN LTD INDICATION: Elevated lipase COMPARISON: CT 07/09/2019. TECHNIQUE: Limited transverse and longitudinal grayscale images of the right upper quadrant with color and pulsed doppler utilized as appropriate. FINDINGS: The liver demonstrates normal echogenicity without focal lesions. The liver measures 16.4 cm. The portal vein is patent with normal antegrade flow. The gallbladder is normal in appearance without stones. No wall thickening or pericholecystic fluid. Negative sonographic Vital's sign. No intrahepatic or extrahepatic biliary dilatation. The common bile duct measures 0.3 cm. The visualized portions of the pancreas demonstrate normal echogenicity without focal lesions. The right kidney has normal echogenicity and measures 9.2 cm. No hydronephrosis, shadowing stones or suspicious masses seen. No ascites or fluid collections. The aorta and IVC are normal diameter where visualized. IMPRESSION: Normal gallbladder. Normal caliber common bile duct. Electronically signed by: Pierre Gonzalez MD (07/10/2019 11:21 AM) [id number]
[2019-07-10 11:48] VITALS: BP 173/78
[2019-07-10] MEDS: HYDROmorphone PF 2 MG/ML VIAL IV PRN ×2 (12:14→16:15)
[2019-07-10 13:50] VITALS: BP 154/88
--- NOTE | 2019-07-10 14:00 | NUR ---
Patient is alert and oriented x4. Was sleeping during morning rounding. Does still mention abdominal pain, morphine given @1002. Patient was still having pain. Phone call to Dr. Wise, Dilaudid 2mg IV Q4h PRN ordered. Patient received first dose @1214 and states "pain is better." Patient's lungs are clear, pt has ileostomy that she cares for herself. Pt is still NPO. Pt understands need to be NPO. Mouth swabs provided to patient. Will continue to monitor.
[2019-07-10 15:00] VITALS: BP 145/86
--- NOTE | 2019-07-10 16:00 | NUR ---
Assumed care of patient at 1545.
[2019-07-10] MEDS ORDERED: fentaNYL 50MCG/HR 1 PATCH PATCH TD SCH (17:30)
[2019-07-10 19:51] VITALS: BP 117/78
[2019-07-10] MEDS ORDERED: LORazepam INTENSOL 2 MG/ML BOTTLE SL SCH (21:00)
[2019-07-10 22:33] VITALS: BP 146/73
--- NOTE | 2019-07-10 23:35 | NUR ---
Upon shift change pt requested her pain patch, pain medication and her Ativan. Attempted to educate pt that we needed to be cautious of how much medication was given together, to not oversedate pt. Pt seemed agreeable. Pt then requested that I bring her IV Benadryl. Attempted to reinforce teaching. VSS. Fentanyl patch applied to right shoulder and PRN morphine given. 1 hour later pt noted sleeping in her bed, Ativan non-administered. @ 2320 pt called for pain medication, PRN morphine brought to pt. While attempting to administer, pt had her arm bent. PT asked if she could straighten her arm so that i could push the medication. Pt then yelled, "I am going to tell my Dr. you are fighting me on giving me what I need and I need what I need." Attempted to explain to pt that I apologize if it came across that way, I just could not push medication through a kinked IV, and the pain medication just became available. Pt remains very short and demanding with staff.
--- NOTE | 2019-07-11 02:23 | PN ---
DATE: 07/10/2019 SUBJECTIVE: The patient is resting, slightly propped up in bed, in no apparent respiratory distress. She continued to complain of severe epigastric pain, some nausea. Her abdominal ultrasound showed no evidence of acute cholecystitis, no wall thickening, no pericholecystic fluid, negative sonographic Vital sign, no intrahepatic or extrahepatic biliary dilatation. The common bile duct measures only 0.3 cm. The visualized portion of the pancreas demonstrates normal echogenicity without any focal lesion. Her serum lipase is trending down from 1685 down to 1344. LABORATORY DATA: Her white cell count was 3700, hemoglobin 13.7, hematocrit 41, MCV 92, and platelet count 218,000. Urinalysis showed that it was unremarkable. ASSESSMENT: Acute pancreatitis, but without any obvious cause. She is not alcoholic and there is no evidence of any acute cholecystitis or choledocholithiasis. Her serum calcium was normal. Her serum triglycerides are still pending at the time of this dictation. PLAN: My plan is to continue with pain management. Continue with IV fluid. We will monitor her lab work closely and decide on further management accordingly. ALONSO BIRCH MD DR: HARRISON/caren JOB#: [id number] / [id number]
[2019-07-11] MEDS: ONDANSETRON PF 4 MG/2 ML VIAL. IVP PRN ×4 (03:26→17:02)
[2019-07-11] MEDS: HYDROmorphone PF 2 MG/ML VIAL IV PRN ×6 (03:26→17:02)
[2019-07-11 05:47] VITALS: BP 131/74
[2019-07-11 07:38] LABS: ALBUMIN 3.1 g/dL (3.4-5.0); ALBUMIN/GLOBULIN RATIO 0.9 (1.0-1.7); CALCIUM 8.6 mg/dL (8.5-10.1); CREATININE 0.7 mg/dL (0.6-1.0); GFR 82.7; POTASSIUM 4.1 mmol/L (3.5-5.1); TOTAL BILIRUBIN 0.6 mg/dL (0.2-1.0); TOTAL PROTEIN 6.7 g/dL (6.4-8.2)
[2019-07-11] MEDS: POTASSIUM CL 20MEQ D5-0.45NACL 1,000 ML IV SCH (08:54)
[2019-07-11] MEDS ORDERED: METOCLOPRAMIDE HCL 10 MG/2 ML VIAL. IVP PRN (09:15)
[2019-07-11] MEDS: METOCLOPRAMIDE HCL 10 MG/2 ML VIAL. IVP SCH ×2 (09:30→17:02)
[2019-07-11] MEDS ORDERED: IOHEXOL 300 MG/ML 75 ML VIAL. IV ONE ×2 (09:30)
--- NOTE | 2019-07-11 09:53 | NUR ---
Pt is alert and oriented x4, but forgetful. States she had a rough night last night. Pt stated she was nauseas and vomited bile, pt states, "I hate having to stick my finger down my throat but it helped." Pt has fentanyl patch on and is receiving IV dilaudid. Pt asking when she can have the morphine. RN explained that since she is on home pain narcotics, her pain here will be difficult to manage since she has some tolerance built and we have to be careful to not depress her respiratory drive. Pt verbalized understanding. RN wrote the next time patient can get pain medication per patients request. Pt is anxious about getting her pain medication. Stated it took about an 1 1/2hr to get her pain medication last night. Asked around 18:30 but didn't receive until 1999, per patient. Pt given zofran this morning around 0730, pt still complaining of nausea at 0845, orders received for regraine. ROSAS.
[2019-07-11 11:12] VITALS: BP 123/79
[2019-07-11] MEDS ORDERED: PROMETHAZINE 25 MG SUPP.RECT. PR PRN (12:00)
--- NOTE | 2019-07-11 12:37 | RAD ---
CT ABD PELV W/ IV CONTRST ONLY Indication: Persistent pain and nausea Exposure: One or more of the following individualized dose reduction techniques were utilized for this examination: 1. Automated exposure control 2. Adjustment of the mA and/or kV according to patient size 3. Use of iterative reconstruction technique. Technique: Intravenous contrast was given. No oral contrast per request. Comparison: 07/09/2019. Linear markings of both lung bases, likely fibrosis. Small right and left lung base pulmonary nodules appear stable. Low-density lesion within the liver is stable. Spleen not enlarged. Low attenuation lesion within the mid pancreas with adjacent fatty stranding is again identified, overall similar in extent of adjacent fatty stranding may be slightly greater. Development of diffuse density within the gallbladder, may represent excretion of contrast from the previous CT scan. No gallbladder distention. Aorta calcified and tortuous without evidence of aneurysm. No significant lymph node enlargement. No evidence of adrenal mass. Kidneys demonstrate symmetric enhancement. Tiny nonobstructing renal calculi are noted. No dominant renal mass is seen. Small left renal artery aneurysm stable. Right lower quadrant ostomy is again seen. No significant bowel distention. Urinary bladder incompletely distended. No significant ascites. No evidence of pneumoperitoneum. Degenerative spondylosis with left convexity lumbar scoliosis. Degenerative changes at both hips. Postsurgical changes at the proximal left femur. IMPRESSION: 1. Low-density lesion within the pancreatic body is again seen, could represent pancreatitis or pancreatic mass. The extent of adjacent inflammatory type stranding may be slightly greater than on prior study. 2. Otherwise, no significant change or new abnormalities since the previous exam. Electronically signed by: Molina Vivas MD (07/11/2019 12:34 PM) [facility]
[2019-07-11] MEDS: PROCHLORPERAZINE 10 MG/2 ML VIAL. IV PRN ×2 (13:57→14:13)
[2019-07-11 15:25] VITALS: BP 113/80
--- NOTE | 2019-07-11 17:09 | NUR ---
Patient is transferring to [facility], pt understands need to transfer, which is for MRCP to look at pancreas better and need for GI consult. Report called to Bryanna on 4-N. IV left in, pt given pain medication and nausea medication per request. EMS called for transport.
--- NOTE | 2019-07-11 19:19 | DS ---
DATE OF DISCHARGE: 07/11/2019 HOSPITAL COURSE: The patient is a 68-year-old female patient who was admitted on 07/10/2019 with severe epigastric pain radiating through and through to the back. Apparently, she was treated at [facility] Emergency Room 2 weeks ago for left-sided kidney stone. She was extensively investigated. Her lab work showed that her blood count are within normal range. Her chemistry was unremarkable except for markedly elevated serum lipase of 1685. Urinalysis unremarkable. CT scan of the abdomen and pelvis showed the patient has a region of parenchymal low attenuation involving the mid pancreatic body with surrounding inflammatory changes, mainly along the dorsal margin of the pancreas with extensive fatty reticulation is overall similar to the most recent prior; however, the parenchymal low attenuation has progressed and there is more conspicuous tracking low attenuation to the more distal pancreatic body and tail. As the patient continued to complain of severe pain that is uncontrolled even with hydromorphone, I did repeat the CT scan and it showed low density lesion within the pancreatic body again seen, could represent pancreatitis or pancreatic mass. The extent of adjacent inflammatory type stranding may be slightly greater than on prior study. Otherwise, no significant change or new abnormalities since the previous examination. We did check her abdominal ultrasound that showed no evidence of acute cholecystitis. No wall thickening and no pericholecystic fluid collection. Negative sonographic Vital sign. No intrahepatic or extrahepatic biliary dilatation. Her serum calcium was normal. Serum triglycerides are also normal and given that her symptoms continued and drop in her lipase is very slow, a decision was made to transfer her to [facility] to arrange for perhaps an MRI and MRCP and also to consult the general intern team. When I saw her this afternoon, she was resting slightly propped up in bed, in no apparent respiratory distress. She is awake, alert, continued to complain of severe pain in her epigastric area requiring hydromorphone as well as persistent nausea despite treatment with different antiemetics. PHYSICAL EXAMINATION: VITAL SIGNS: Her heart rate was 69, blood pressure 123/79, temperature 97.7, respiratory rate was 18 and oxygen saturation was 99% on room air. HEAD, EYES, EARS, NOSE AND THROAT: Showed normocephalic, atraumatic. NECK: Supple. HEART: Showed normal first and second heart sounds. No gallop or murmur. CHEST: Clear to auscultation. No crepitation or rhonchi. ABDOMEN: Scaphoid, soft. Tenderness mostly in epigastric area. No guarding or rigidity. No organomegaly. All hernial orifices intact. Bowel sounds normal. NEUROLOGIC: She was awake, alert, responding appropriately. All cranial nerves intact. EXTREMITIES: She moves extremities without difficulty. She ambulates without assistance or assistive devices. Her intake and output are incompletely recorded. LABORATORY DATA: Her lab work this morning showed that her serum sodium 142, potassium 4.1, chloride 108, bicarbonate 27, anion gap of 7, BUN 4, creatinine 0.7. Estimated GFR was 83 mL per minute. Her glucose 117, calcium was 8.6. Total bilirubin, AST, ALT, alkaline phosphatase were normal. Total protein 6.7, albumin 3.1. Her serum triglycerides were only 72, total cholesterol 192, LDL cholesterol 135, VLDL was 14, HDL was 43 and the ratio was 4. Her serum lipase came down from 1685 down to 949. DISCHARGE MEDICATIONS: The patient will be transferred to [facility] to continue with Compazine 10 mg IV every 6 hours, lorazepam 2 mg sublingually at bedtime for insomnia, fentanyl 50 mcg per hour topically q. 72 hours, hydromorphone 2 mg IV every 3 hours, D5 half normal with 20 mEq of potassium chloride IV at 75 mL. FINAL DISCHARGE DIAGNOSES: Acute pancreatitis versus pancreatic mass with accompanying pancreatitis. Other medical problems include history of nephrolithiasis, hyperlipidemia, osteoarthritis, scoliosis, and ulcerative colitis for which she underwent total colectomy about 40 years ago. She has an ileostomy in the right lower quadrant. ALONSO BIRCH MD DR: HARRISON/caren JOB#: [id number] / [id number]
== END 2019-07-11 17:45 | disposition short-term general hospital (02) | DRG 440 ==
LOC: ER 22:09 → 1 SOUTH 07-09 00:30
PROVIDERS: ADMIT Internal Medicine; ATTEND Internal Medicine
DX: K85.90 Acute pancreatitis without necrosis or infection, unspecified (principal); D18.03 Hemangioma of intra-abdominal structures; E78.5 Hyperlipidemia, unspecified; I87.8 Other specified disorders of veins; K76.89 Other specified diseases of liver; M41.9 Scoliosis, unspecified; M47.9 Spondylosis, unspecified; M48.00 Spinal stenosis, site unspecified; N20.0 Calculus of kidney; Z80.1 Family history of malignant neoplasm of trachea, bronchus and lung; Z82.49 Family history of ischemic heart disease and other diseases of the circulatory system; Z82.5 Family history of asthma and other chronic lower respiratory diseases; Z87.442 Personal history of urinary calculi; Z90.710 Acquired absence of both cervix and uterus; Z93.2 Ileostomy status; Z96.652 Presence of left artificial knee joint; M19.90 Unspecified osteoarthritis, unspecified site
CPT/HCPCS: 36415; 74177; 76705; 80053; 80061; 81001; 83690; 84484; 85025; 85027; 87086; 93005; 96372; J0780; J1170; J1200; J2270; J2405; J2765; Q0162; Q9967; 99285-25

== ENCOUNTER 2019-08-27 11:13 | Inpatient (IN) | payer OTHER ==
[~2019-08-27] VITALS: Ht 170.2 cm; Wt 56.8 kg
[~2019-08-27 11:13] MED LIST changes: +MORP-15 PO
[2019-08-27 12:17] VITALS: BP 116/77
[2019-08-27] MEDS ORDERED: MORP15TA PO (13:14)
[2019-08-27] MEDS ORDERED: HYOS0.1278 SL (13:14)
[2019-08-27] MEDS ORDERED: SENN-142 PO (13:14)
[2019-08-27] MEDS ORDERED: GABA-586 PO (13:14)
[2019-08-27] MEDS ORDERED: FENT1PAT17 TP (13:14)
[2019-08-27] MEDS ORDERED: OXYC10SY PO (13:14)
[2019-08-27] MEDS ORDERED: MORP100S3 PO (13:14)
[2019-08-27] MEDS ORDERED: LORA-434 PO (13:14)
[2019-08-27] MEDS ORDERED: MORPHINE SULFATE 20 MG/ML CONC SOLUTION. SL PRN (13:30)
[2019-08-27] MEDS ORDERED: LORazepam 1 MG TABLET PO PRN (13:30)
[2019-08-27] MEDS: GABAPENTIN 300 MG CAPSULE. PO SCH ×2 (13:47→21:48)
[2019-08-27] MEDS: oxyCODONE IR 5 MG TABLET PO PRN ×2 (13:47→19:44)
[2019-08-27] MEDS ORDERED: ONDANSETRON ODT 4 MG TAB.RAPDIS PO PRN (17:15)
--- NOTE | 2019-08-27 19:27 | HP ---
ADMIT DATE: 08/27/2019 H AND P FOR RESPITE CARE HISTORY OF PRESENT ILLNESS: The patient is a 68-year-old female patient who was seen originally in this hospital with a complaint of abdominal pain, was diagnosed with pancreatitis and possible mass in her pancreas. Eventually, she was diagnosed with pancreatic tumor and she underwent distal pancreatectomy, splenectomy, and cholecystectomy with cholangiogram and she was found to have viable small bowel, extensive adhesions to the gallbladder, normal cholangiogram, pancreatic mass in the neck of the pancreas, inflammatory reaction at celiac axis, biopsy consistent with adenocarcinoma. Postoperatively, the patient continued to have severe pain and she has also continued to have severe anorexia and poor appetite and therefore, she was started on TPN. Eventually, the patient opted for hospice care and was discharged home on hospice and basically she is here now for respite care to get some rest for her who is very stressed out. PAST MEDICAL HISTORY: Significant for pancreatic cancer, stage 3B. She has pancreatitis, resolved and she has a history of ulcerative colitis, status post subtotal colectomy and ileostomy, severe anorexia and poor oral intake, severe protein-calorie malnutrition, severe depression. PAST SURGICAL HISTORY: Significant for total abdominal hysterectomy, bilateral salpingo-oophorectomy, left femur fracture status post open reduction and internal fixation, left total knee arthroplasty, ileostomy and total colectomy, appendectomy as well as colonoscopy. ALLERGIES: She has no known drug allergies. FAMILY HISTORY: She had one sister elder due to massive myocardial infarction in her 40s. One sister, younger and still healthy and alive. Her father in his 60s because of lung cancer. Mother in her 60s because of the emphysema. SOCIAL HISTORY: She is , has no children. She has never smoked, does not drink alcohol or use any recreational drugs. REVIEW OF SYSTEMS: As per history of present illness. MEDICATIONS: She is currently on following medications: She is on hyoscyamine sulfate 0.125 mg sublingually every 4 hours, fentanyl patch 50 mcg per hour topically every 72 hours. She is on morphine sulfate 15 mg extended release q. 12 hours, morphine sulfate 100 mg per 5 mL solution and she takes 10 mg p.o. q. 2 hours p.r.n., oxycodone 10 mg every 4 hours, gabapentin 300 mg 3 times a day, lorazepam 0.5 mg every 4 hours, Senna-S 1 tablet twice a day, multivitamin 1 tablet once a day. PHYSICAL EXAMINATION: GENERAL: On arrival, the patient looked extremely pale, cachectic, but no jaundice, cyanosis or thyromegaly. No jugular venous distention. No limb edema. VITAL SIGNS: Her heart rate was 101, blood pressure 116/77, temperature was 98.6, respiratory rate was 20, and oxygen saturation was 97%. HEAD, EYES, EARS, NOSE AND THROAT: Normocephalic, atraumatic. NECK: Supple. HEART: Showed normal first and second heart sounds. No gallop, rub or murmur. CHEST: Clear to auscultation. No crepitation or rhonchi. ABDOMEN: Distended, soft, nontender. NEUROLOGIC: She was awake, alert, responding appropriately. All cranial nerves intact. EXTREMITIES: She moves extremities without difficulty. She has marked muscle wasting and weakness. ASSESSMENT AND PLAN: In summary, this is a 68-year-old female patient with stage 3B pancreatic cancer. The patient did not want to go any further treatment and opted for hospice and comfort care. She is here for respite care, will continue with all her home medications. ALONSO BIRCH MD DR: HARRISON/caren JOB#: [id number] / [id number]
[2019-08-27 19:46] VITALS: BP 124/84
[2019-08-27] MEDS: SENNOSIDES/DOCUSATE 8.6/50MG TABLET. PO SCH (21:47)
[2019-08-27] MEDS: MORPHINE ER 15 MG TABLET.ER PO SCH (21:48)
[2019-08-27] MEDS: ONDANSETRON ODT 4 MG TAB.RAPDIS PO PRN (21:50)
[2019-08-28] MEDS: oxyCODONE IR 5 MG TABLET PO PRN ×4 (03:34→17:18)
[2019-08-28] MEDS: MULTIVITAMIN with MINERAL TABLET. PO SCH (08:13)
[2019-08-28] MEDS: GABAPENTIN 300 MG CAPSULE. PO SCH ×3 (08:13→20:46)
[2019-08-28] MEDS: SENNOSIDES/DOCUSATE 8.6/50MG TABLET. PO SCH ×2 (08:13→20:46)
[2019-08-28] MEDS: MORPHINE ER 15 MG TABLET.ER PO SCH (08:14)
[2019-08-28] MEDS ORDERED: FLU VAX QS 2019-20 (36MOS+)/PF 0.5 ML SYRINGE. VAX IM ONE (09:00)
[2019-08-28] MEDS: fentaNYL 50MCG/HR 1 PATCH PATCH TD SCH (09:06)
[2019-08-28] MEDS ORDERED: MORPHINE SULFATE 20 MG/ML CONC SOLUTION. SL PRN (10:00)
[2019-08-28 12:03] VITALS: BP 119/83
[2019-08-28] MEDS: VITS A & D/LANOLIN TOPICAL OINTMENT 42GM TUBE. TP SCH ×2 (16:15→20:51)
[2019-08-28] MEDS: ONDANSETRON ODT 4 MG TAB.RAPDIS PO PRN (17:18)
[2019-08-28 19:12] VITALS: BP 110/73
[2019-08-28] MEDS: MORPHINE SULFATE 20 MG/ML CONC SOLUTION. SL PRN (19:32)
[2019-08-28] MEDS: MORPHINE ER 30 MG TABLET.ER PO SCH (20:50)
[2019-08-29] MEDS: MORPHINE SULFATE 20 MG/ML CONC SOLUTION. SL PRN ×5 (01:23→19:39)
[2019-08-29] MEDS: MULTIVITAMIN with MINERAL TABLET. PO SCH (08:20)
[2019-08-29] MEDS: GABAPENTIN 300 MG CAPSULE. PO SCH ×3 (08:21→21:30)
[2019-08-29] MEDS: MORPHINE ER 30 MG TABLET.ER PO SCH ×2 (08:21→21:31)
[2019-08-29] MEDS: SENNOSIDES/DOCUSATE 8.6/50MG TABLET. PO SCH ×2 (08:22→21:30)
[2019-08-29] MEDS: VITS A & D/LANOLIN TOPICAL OINTMENT 42GM TUBE. TP SCH ×2 (08:23→21:30)
[2019-08-29] MEDS: oxyCODONE IR 5 MG TABLET PO PRN ×3 (08:25→17:58)
[2019-08-29 13:00] VITALS: BP 108/71
[2019-08-29 19:38] VITALS: BP 106/71
[2019-08-30] MEDS: MORPHINE SULFATE 20 MG/ML CONC SOLUTION. SL PRN ×5 (01:00→22:47)
[2019-08-30] MEDS: oxyCODONE IR 5 MG TABLET PO PRN ×5 (05:34→23:43)
[2019-08-30] MEDS: MORPHINE ER 30 MG TABLET.ER PO SCH ×2 (07:54→20:44)
[2019-08-30] MEDS: MULTIVITAMIN with MINERAL TABLET. PO SCH (07:54)
[2019-08-30] MEDS: SENNOSIDES/DOCUSATE 8.6/50MG TABLET. PO SCH ×2 (07:54→20:44)
[2019-08-30] MEDS: GABAPENTIN 300 MG CAPSULE. PO SCH ×3 (07:54→20:44)
[2019-08-30] MEDS: VITS A & D/LANOLIN TOPICAL OINTMENT 42GM TUBE. TP SCH ×2 (07:55→20:50)
[2019-08-30 10:21] VITALS: BP 103/71
[2019-08-30] MEDS: ONDANSETRON ODT 4 MG TAB.RAPDIS PO PRN (10:21)
[2019-08-30 15:18] VITALS: BP 94/66
[2019-08-30 19:10] VITALS: BP 114/77
[2019-08-31] MEDS: MORPHINE SULFATE 20 MG/ML CONC SOLUTION. SL PRN ×3 (00:53→16:44)
[2019-08-31 05:06] VITALS: BP 110/78
[2019-08-31] MEDS: oxyCODONE IR 5 MG TABLET PO PRN ×3 (06:24→22:09)
[2019-08-31] MEDS: MORPHINE ER 30 MG TABLET.ER PO SCH (08:26)
[2019-08-31] MEDS: SENNOSIDES/DOCUSATE 8.6/50MG TABLET. PO SCH ×2 (08:26→20:47)
[2019-08-31] MEDS: MULTIVITAMIN with MINERAL TABLET. PO SCH (08:26)
[2019-08-31] MEDS: GABAPENTIN 300 MG CAPSULE. PO SCH ×3 (08:27→20:47)
[2019-08-31] MEDS: fentaNYL 50MCG/HR 1 PATCH PATCH TD SCH (08:27)
[2019-08-31] MEDS: VITS A & D/LANOLIN TOPICAL OINTMENT 42GM TUBE. TP SCH ×2 (08:27→20:56)
[2019-08-31] MEDS: ONDANSETRON ODT 4 MG TAB.RAPDIS PO PRN (12:36)
[2019-08-31] MEDS: METHADONE 5 MG TABLET. PO SCH ×2 (13:00→20:47)
[2019-08-31 14:57] VITALS: BP 108/74
[2019-08-31 19:51] VITALS: BP 107/67
[2019-09-01] MEDS: oxyCODONE IR 5 MG TABLET PO PRN ×2 (03:52→09:57)
[2019-09-01] MEDS: HYOSCYAMINE 0.125 MG TAB.RAPDIS PO PRN ×2 (03:52→07:26)
[2019-09-01 06:27] VITALS: BP 103/71
[2019-09-01] MEDS: METHADONE 5 MG TABLET. PO SCH (07:22)
[2019-09-01] MEDS: SENNOSIDES/DOCUSATE 8.6/50MG TABLET. PO SCH (07:22)
[2019-09-01] MEDS: GABAPENTIN 300 MG CAPSULE. PO SCH (07:23)
[2019-09-01] MEDS: MULTIVITAMIN with MINERAL TABLET. PO SCH (07:23)
[2019-09-01] MEDS: MORPHINE SULFATE 20 MG/ML CONC SOLUTION. SL PRN ×2 (08:55→11:15)
[2019-09-01] MEDS: VITS A & D/LANOLIN TOPICAL OINTMENT 42GM TUBE. TP SCH (09:00)
--- NOTE | 2019-09-13 09:03 | DS ---
DATE OF DISCHARGE: 09/01/2019 The patient is a 68-year-old female patient, who was diagnosed with stage 3B pancreatic cancer for which she underwent distal pancreatectomy, splenectomy and cholecystectomy and she was under hospice care, was admitted for respite care. She remained hemodynamically stable and was discharged to go under hospice care. ALONSO BIRCH MD DR: HARRISON/caren JOB#: [id number] / [id number]
== END 2019-09-01 11:25 | disposition hospice, home (50) | DRG 435 ==
LOC: 1 SOUTH 12:01
PROVIDERS: ADMIT Internal Medicine; ATTEND Internal Medicine
DX: C25.9 Malignant neoplasm of pancreas, unspecified (principal); K85.90 Acute pancreatitis without necrosis or infection, unspecified; Z80.1 Family history of malignant neoplasm of trachea, bronchus and lung; Z82.49 Family history of ischemic heart disease and other diseases of the circulatory system; Z85.07 Personal history of malignant neoplasm of pancreas; Z90.411 Acquired partial absence of pancreas; Z82.5 Family history of asthma and other chronic lower respiratory diseases; Z90.710 Acquired absence of both cervix and uterus; Z90.81 Acquired absence of spleen; Z96.652 Presence of left artificial knee joint; F32.9 Major depressive disorder, single episode, unspecified
CPT/HCPCS: 90471; 90686; Q0162; Q5005